=== PATIENT | male | born 1965 | race African-American/Black ===

== ENCOUNTER 2018-10-02 13:14 | Day surgery (SDC) | payer OTHER ==
[2018-10-02] MEDS ORDERED: FENTAnyl 50 MCG/ML VIAL (15:59)
[2018-10-02] MEDS ORDERED: MIDAZOLAM 1 MG/ML 2 ML INJ (15:59)
== END 2018-10-02 17:18 | disposition home or self-care (01) ==
LOC: GIL 13:14
DX: Z12.11 Encounter for screening for malignant neoplasm of colon (principal); D12.5 Benign neoplasm of sigmoid colon; K63.89 Other specified diseases of intestine; E78.5 Hyperlipidemia, unspecified
CPT/HCPCS: 45380; 88305